=== PATIENT | male | born 1975 | race Caucasian/White ===

== ENCOUNTER 2016-12-09 21:26 | Inpatient (IN) | payer BC, OTHER ==
[~2016-12-09 21:26] MED LIST: ISOVUE-370 76%-LOCM 1 ML ONE
[2016-12-09 21:47] LABS: #Basophils 0.1 thou/uL (0.0-0.2); #Eosinphils 0.3 thou/uL (0.0-0.7); #Lymphocytes 2.9 thou/uL (1.20-3.40); #Monocytes 0.8 thou/uL (0.11-0.59); #Neutrophils 10.3 thou/uL (1.40-6.50); %Basophils 0.4 % (0.0-1.0); %Eosinophils 1.9 % (0.0-10.0); %Lymphocytes 20.3 % (21.0-51.0); %Monocytes 5.7 % (0.0-10.0); Hematocrit 44.1 % (42.0-52.0); Mean Platelet Volume 8.1 fL (7.4-10.4); Red Blood Cell (RBC) Count 4.99 mill/uL (4.70-6.10); White Blood Cell (WBC) Count 14.4 thou/uL (4.8-10.8)
[2016-12-09] MEDS ORDERED: Fentanyl 100 MCG/2 ML VIAL ONE (22:00)
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
[2016-12-09] MEDS ORDERED: Dextrose 5% in Water 1,000 ML IV PRN (22:09)
[2016-12-09] MEDS ORDERED: Dextrose 50% Abboject 50 ML SYRINGE SLOW IVP PRN (22:09)
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
[2016-12-09 22:12] LABS: ALT (SGPT) 35 U/L (8-55); AST (SGOT) 37 U/L (5-34); Alkaline Phosphatase 43 U/L (40-150); Anion Gap 11 mmol/L (10-20); BUN (Urea Nitrogen) 19 mg/dL (8.9-20.6); Bilirubin, Total 0.7 mg/dL (0.2-1.2); Calc. Creatinine Clearance 0 mL/min (70-130); Calcium 9.2 mg/dL (7.8-10.44); Carbon Dioxide 28 mmol/L (22-29); Chloride 105 mmol/L (98-107); Estimated GFR-MDRD 59; Globulin 2.8 g/dL (2.4-3.5); Protein, Total 6.8 g/dL (6.0-8.3)
[2016-12-09 22:13] LABS: Prothrombin Time 13.5 SEC (12.0-14.7)
[2016-12-09] MEDS ORDERED: Adacel (T-DAP) 0.5 ML VIAL ONE (22:18)
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
[2016-12-09] MEDS ORDERED: Morphine Sulfate 2 MG/ML SYRINGE SLOW IVP PRN (22:27)
[2016-12-09] MEDS ORDERED: Ondansetron ODT 4 MG TAB PO PRN (22:29)
[2016-12-09] MEDS ORDERED: Cyclobenzaprine 10 MG TAB PO PRN (22:45)
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
[2016-12-09] MEDS ORDERED: Ketorolac Tromethamine 30 MG/ML VIAL IVP SCH (23:59)
[2016-12-10] MEDS: Sodium Chloride 0.9% 1,000 ML IV SCH ×4 (00:05→20:20)
[2016-12-10] MEDS: traMADol HCl 50 MG TAB PO SCH ×5 (00:06→20:19)
[2016-12-10] MEDS: Ketorolac Tromethamine 30 MG/ML VIAL IVP SCH ×4 (00:07→18:41)
[2016-12-10] MEDS: Acetaminophen 500 MG TAB PO SCH ×5 (00:07→20:18)
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
[2016-12-10 05:17] LABS: #Monocytes 0.9 thou/uL (0.11-0.59); #Neutrophils 11.3 thou/uL (1.40-6.50); %Basophils 0.1 % (0.0-1.0); %Eosinophils 0.2 % (0.0-10.0); %Lymphocytes 7.6 % (21.0-51.0); %Monocytes 6.6 % (0.0-10.0); Hematocrit 37.6 % (42.0-52.0); Mean Platelet Volume 8.5 fL (7.4-10.4); Red Blood Cell (RBC) Count 4.25 mill/uL (4.70-6.10); White Blood Cell (WBC) Count 13.2 thou/uL (4.8-10.8)
[2016-12-10 05:38] LABS: Anion Gap 11 mmol/L (10-20); BUN (Urea Nitrogen) 22 mg/dL (8.9-20.6); Calc. Creatinine Clearance 0 mL/min (70-130); Calcium 8.5 mg/dL (7.8-10.44); Carbon Dioxide 23 mmol/L (22-29); Chloride 109 mmol/L (98-107); Estimated GFR-MDRD 67; Magnesium 1.8 mg/dL (1.6-2.6); Phosphorus 2.5 mg/dL (2.3-4.7)
[2016-12-10 06:11] VITALS: BMI 42.7
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
[2016-12-10] MEDS ORDERED: Fentanyl 100 MCG/2 ML VIAL ONE ×2 (08:24→12:09)
[2016-12-10] MEDS ORDERED: Midazolam HCl 2 mg/2 ml Vial ONE (09:41)
[2016-12-10] MEDS ORDERED: Fentanyl 250 MCG/5 ML VIAL ONE (09:41)
[2016-12-10] MEDS ORDERED: Ketorolac Tromethamine 30 MG/ML VIAL ONE (10:12)
[2016-12-10] MEDS ORDERED: Succinylcholine Chloride 20 MG/ML 10 ml SYRINGE FS ONE (10:12)
[2016-12-10] MEDS ORDERED: Propofol 200 MG/20 ML VIAL ONE ×2 (10:12)
[2016-12-10] MEDS ORDERED: PHENYLEPHRINE-NS 100 MCG/ML 10 ML SYRINGE ONE (10:12)
[2016-12-10] MEDS ORDERED: Glycopyrrolate 0.2 MG/ML 5 ML SYRINGE ONE (10:12)
[2016-12-10] MEDS ORDERED: Ondansetron HCl/PF 4 MG/2 ML Vial ONE (10:12)
[2016-12-10] MEDS ORDERED: Lidocaine 1% PF 5 ML VIAL ONE (10:12)
[2016-12-10] MEDS ORDERED: Dexamethasone 20 MG/5 ML VIAL ONE (10:12)
[2016-12-10] MEDS ORDERED: Ondansetron HCl/PF 4 MG/2 ML Vial IVP PRN (11:48)
[2016-12-10] MEDS ORDERED: Promethazine HCl 25 MG/ML VIAL IM PRN (11:48)
[2016-12-10] MEDS ORDERED: Promethazine HCl 25 MG/ML VIAL SLOW IVP PRN (11:48)
[2016-12-10] MEDS: Famotidine 20 MG TAB PO SCH ×2 (12:53→20:19)
--- NOTE | 2016-12-10 15:10 | RAD ---
TWO VIEWS LEFT FEMUR: Comparison: 12-10-15 History: Femur fracture. FINDINGS/IMPRESSION: Multiple limited intraoperative fluoroscopic views of the left femur were submitted for interpretati on. Patient is status post retrograde intramedullary alessandro fixation of the fracture of the mid portion of the femur. The fracture is better aligned. POS: [facility]
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
[2016-12-11] MEDS: Ketorolac Tromethamine 30 MG/ML VIAL IVP SCH ×4 (00:40→18:33)
[2016-12-11] MEDS: Acetaminophen 500 MG TAB PO SCH ×4 (05:01→22:44)
[2016-12-11] MEDS: traMADol HCl 50 MG TAB PO SCH ×4 (05:01→22:44)
[2016-12-11] MEDS: Famotidine 20 MG TAB PO SCH ×3 (09:07→22:44)
[2016-12-11] MEDS: Sodium Chloride 0.9% 1,000 ML IV SCH ×2 (09:24→18:33)
--- NOTE | 2016-12-11 10:13 | RAD ---
4 VIEWS OF LEFT FEMUR: Date: 12/11/16 HISTORY: Postoperative knee pain, fracture, status post open reduction and internal fixation. FINDINGS: There is an intramedullary alessandro within the femur with two distal interlocking screws and a proximal i nterlocking screw. Cutaneous dominick are seen within the thigh proximally and distally near the knee . There is a comminuted fracture of the proximal/mid shaft left femur. A subtle fracture involving t he distal left femoral shaft as well. Anatomic alignment is seen at the fracture sites. IMPRESSION: Postoperative changes as detailed above. POS: [facility]
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
[2016-12-12] MEDS: Ketorolac Tromethamine 30 MG/ML VIAL IVP SCH ×4 (00:29→18:34)
[2016-12-12] MEDS: Ondansetron HCl/PF 4 MG/2 ML Vial IVP PRN ×2 (01:51→10:27)
[2016-12-12] MEDS: Sodium Chloride 0.9% 1,000 ML IV SCH (04:05)
[2016-12-12] MEDS: traMADol HCl 50 MG TAB PO SCH ×5 (04:33→20:57)
[2016-12-12] MEDS: Acetaminophen 500 MG TAB PO SCH ×4 (04:33→20:56)
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
[2016-12-12] MEDS ORDERED: HYDROcodone/Acetaminophen 7.5/325 mg Tablet PO PRN (08:54)
[2016-12-12] MEDS: Senokot S 8.6-50 MG TAB PO SCH ×2 (09:21→20:56)
[2016-12-12] MEDS: Polyethylene Glycol 3350 17 GM Packet PO SCH (09:22)
[2016-12-12] MEDS: Famotidine 20 MG TAB PO SCH ×2 (09:22→20:56)
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
[2016-12-12] MEDS ORDERED: Magnesium Citrate 300 ML BOT PO SCH (15:30)
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
[2016-12-13] MEDS: Ketorolac Tromethamine 30 MG/ML VIAL IVP SCH ×4 (00:33→17:05)
[2016-12-13] MEDS: traMADol HCl 50 MG TAB PO SCH ×4 (05:20→20:41)
[2016-12-13] MEDS: Acetaminophen 500 MG TAB PO SCH ×4 (05:20→20:40)
[2016-12-13] MEDS: Senokot S 8.6-50 MG TAB PO SCH ×2 (08:47→20:41)
[2016-12-13] MEDS: Polyethylene Glycol 3350 17 GM Packet PO SCH (08:47)
[2016-12-13] MEDS: Famotidine 20 MG TAB PO SCH ×2 (08:48→20:42)
[2016-12-13] MEDS: Enoxaparin Sodium 40 MG/0.4 ML SYRINGE SC SCH (08:48)
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
[2016-12-13] MEDS: Scopolamine 1.5 mg/72 hour Patch TD SCH (12:05)
[2016-12-14] MEDS: Ketorolac Tromethamine 30 MG/ML VIAL IVP SCH ×5 (00:38→22:17)
[2016-12-14] MEDS: traMADol HCl 50 MG TAB PO SCH ×3 (05:07→17:22)
[2016-12-14] MEDS: Acetaminophen 500 MG TAB PO SCH ×2 (05:07→11:02)
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
[2016-12-14] MEDS ORDERED: Ibuprofen 800 MG TAB PO SCH (08:30)
[2016-12-14] MEDS: Famotidine 20 MG TAB PO SCH ×2 (08:50→20:42)
[2016-12-14] MEDS: Senokot S 8.6-50 MG TAB PO SCH ×2 (08:50→20:42)
[2016-12-14] MEDS: Polyethylene Glycol 3350 17 GM Packet PO SCH (08:50)
[2016-12-14] MEDS: Enoxaparin Sodium 40 MG/0.4 ML SYRINGE SC SCH (08:51)
[2016-12-14] MEDS ORDERED: Metoclopramide HCl 10 MG/2 ML VIAL IVP SCH (09:45)
[2016-12-14] MEDS: Ondansetron HCl/PF 4 MG/2 ML Vial IVP PRN (11:02)
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
[2016-12-14] MEDS: D5 1/2 NS w/20 mEq KCL 1,000 ML IV SCH ×2 (12:59→23:58)
[2016-12-14] MEDS: Acetaminophen 1,000 MG in Premix Bag 1 BAG IVPB SCH ×3 (12:59→23:59)
[2016-12-14] MEDS: Meclizine HCl 25 MG TAB PO SCH ×2 (14:28→20:43)
[2016-12-15] MEDS: Ketorolac Tromethamine 30 MG/ML VIAL IVP SCH ×4 (02:57→20:42)
[2016-12-15] MEDS: Meclizine HCl 25 MG TAB PO SCH ×3 (05:43→21:20)
[2016-12-15] MEDS: Acetaminophen 1,000 MG in Premix Bag 1 BAG IVPB SCH ×2 (05:55→12:30)
[2016-12-15 06:32] LABS: Band 16 % (5-11); Hematocrit 34.8 % (42.0-52.0); Mean Platelet Volume 8.7 fL (7.4-10.4); Metamyelocyte 1 % (0-0); Neutrophil 58 % (42-75); White Blood Cell (WBC) Count 6.4 thou/uL (4.8-10.8)
[2016-12-15 06:37] LABS: Anion Gap 12 mmol/L (10-20); BUN (Urea Nitrogen) 33 mg/dL (8.9-20.6); Calc. Creatinine Clearance 205 mL/min (70-130); Calcium 8.5 mg/dL (7.8-10.44); Carbon Dioxide 24 mmol/L (22-29); Chloride 106 mmol/L (98-107); Estimated GFR-MDRD 86; Magnesium 2.4 mg/dL (1.6-2.6); Phosphorus 3.3 mg/dL (2.3-4.7)
[2016-12-15] MEDS: D5 1/2 NS w/20 mEq KCL 1,000 ML IV SCH (08:13)
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
[2016-12-15] MEDS: Polyethylene Glycol 3350 17 GM Packet PO SCH (09:57)
[2016-12-15] MEDS: Senokot S 8.6-50 MG TAB PO SCH ×2 (09:58→20:43)
[2016-12-15] MEDS: Famotidine 20 MG TAB PO SCH ×2 (09:58→20:39)
[2016-12-15] MEDS: Enoxaparin Sodium 40 MG/0.4 ML SYRINGE SC SCH (10:00)
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
[2016-12-15] MEDS ORDERED: traMADol HCl 50 MG TAB PO PRN ×2 (18:36)
[2016-12-15] MEDS: Acetaminophen 500 MG TAB PO SCH (19:32)
[2016-12-16] MEDS: Acetaminophen 500 MG TAB PO SCH ×4 (01:00→19:50)
[2016-12-16] MEDS: Ketorolac Tromethamine 30 MG/ML VIAL IVP SCH (03:22)
[2016-12-16] MEDS: Meclizine HCl 25 MG TAB PO SCH ×3 (06:52→21:30)
[2016-12-16] MEDS: Senokot S 8.6-50 MG TAB PO SCH ×2 (09:24→21:30)
[2016-12-16] MEDS: Polyethylene Glycol 3350 17 GM Packet PO SCH (09:24)
[2016-12-16] MEDS: Enoxaparin Sodium 40 MG/0.4 ML SYRINGE SC SCH (09:30)
[2016-12-16] MEDS: Famotidine 20 MG TAB PO SCH ×2 (09:35→21:29)
[2016-12-16] MEDS: Scopolamine 1.5 mg/72 hour Patch TD SCH (12:46)
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
[2016-12-17] MEDS: Acetaminophen 500 MG TAB PO SCH ×3 (01:25→13:45)
[2016-12-17] MEDS: Meclizine HCl 25 MG TAB PO SCH ×2 (07:37→13:45)
[2016-12-17] MEDS: Famotidine 20 MG TAB PO SCH (09:20)
[2016-12-17] MEDS: Enoxaparin Sodium 40 MG/0.4 ML SYRINGE SC SCH (09:21)
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
[2016-12-17 16:18] VITALS: BP 128/80; TEMP 98
== END 2016-12-17 16:35 | disposition swing bed (61) | DRG 956 ==
LOC: ERS 21:26 → SURG A 23:12
PROVIDERS: ADMIT Specialist; ATTEND Specialist
PROC: 0QH906Z Insertion of Intramedullary Internal Fixation Device into Left Femoral Shaft, Open Approach (ICD-10-PCS; principal; 2016-12-10)
DX: S72.362A Displaced segmental fracture of shaft of left femur, initial encounter for closed fracture (principal); S27.329A Contusion of lung, unspecified, initial encounter; S22.42XA Multiple fractures of ribs, left side, initial encounter for closed fracture; V23.4XXA Motorcycle driver injured in collision with car, pick-up truck or van in traffic accident, initial encounter; Y92.410 Unspecified street and highway as the place of occurrence of the external cause; R22.9 Localized swelling, mass and lump, unspecified; R11.2 Nausea with vomiting, unspecified; M25.572 Pain in left ankle and joints of left foot; M54.12 Radiculopathy, cervical region
CPT/HCPCS: 36415; 70450; 71010; 71260; 72040; 72125; 74177; 76001; 80048; 80053; 80307; 83735; 84100; 85007; 85025; 85027; 85610; 85730; 86850; 86900; 86901; 90471; 90715; 93005; 94640; 94760; 96361; 96374; C1713; C1769; G0390; G8978-GP-CK; G8979-GP-CJ; G8987-GO-CL; G8988-GO-CJ; J0131; J1100; J1650; J1885; J2001; J2250; J2270; J2405; J2704; J3010; J7620; L1832; Q0162

== ENCOUNTER 2016-12-27 15:01 | Outpatient (CLI) | payer BC ==
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
--- NOTE | 2016-12-27 22:04 | MRI ---
MRI OF THE CERVICL SPINE: Date: 12-27-16 History: Cervical radiculopathy, left arm numbness and tingling. Limited movement of the left should er. Technique: Multiplanar, multisequence MR imaging of the cervical spine obtained without contrast. FINDINGS: Craniocervical junction appears intact. Mild degenerative change noted at the atlantoaxial interspac e. There is a mild degree of cervical scoliotic curvature, a degree of which may be on the basis of positioning. The sagittal STIR imaging demonstrates no focal area of osseous marrow edema. No focal area of abnormal prevertebral soft tissue swelling abnormality. Cervicothoracic junction appears int act. C2-3: Intervertebral disc height and signal intensity is within normal limits with no significant ce ntral canal or neural foraminal stenosis. L3-4: There is disc space narrowing and disc desiccation. There is disc bulge with a superimposed le ft paracentral/left foraminal disc protrusion. This causes significant central canal stenosis latera lly on the left at C3-4 and moderate/severe left neural foraminal stenosis. There is no significant right neural foraminal stenosis. C4-5: Intervertebral disc height and signal intensity appears within normal limits with no significa nt central canal or neural foraminal stenosis. C5-6: Disc space narrowing, disc desiccation and mild disc bulge present. Partial effacement of the ventral thecal sac with no significant central canal or neural foraminal stenosis. C6-7: There is mild disc bulge. There is a foraminal tear on the left with an associated left forami nal disc protrusion causing significant left neural foraminal stenosis. No significant central canal or right neural foraminal stenosis. C7-T1: No significant central canal or neural foraminal stenosis. No focal area of signal abnormality identified within the cervical cord. IMPRESSION: Cervical disc disease with associted significant left sided neural foraminal stenosis at C3-4 and C6 -7 as detailed above. POS: CRICKET
== END 2016-12-27 15:02 | disposition home or self-care (01) ==
LOC: TBSIIMAG 15:01
PROVIDERS: ATTEND Family Medicine
DX: M25.512 Pain in left shoulder (principal); M50.80 Other cervical disc disorders, unspecified cervical region
CPT/HCPCS: 72141

== ENCOUNTER 2017-10-11 13:16 | Outpatient (CLI) | payer OTHER ==
--- NOTE | 2017-10-11 15:59 | MRI ---
MRI OF THE LEFT SHOULDER: DATE: 10/11/17. PROVIDED CLINICAL HISTORY: Left shoulder pain. FINDINGS: Comparison is made with the study dated 12/27/16. Full-thickness, full-width retracted tears of the supraspinatus and infraspinatus tendons are redemonstrated. There is now retraction proximal to the glenohumeral joint. There is associated essentially complete atrophy of the infraspinatus muscle and severe muscular volume loss involving supraspinatus muscle. Partial thickness undersurface tearing involving the cranial fibers of the subscapularis may be present. The teres minor appears intact. T he long-head biceps tendon appears intact and is normally located. There is abnormal signal present in the region of the superior labrum. This more convincingly demons trated features suggesting SLAP tear on the prior study, not optimally evaluated in the absence of mi int distention. No focal glenohumeral articular cartilage defect is apparent. The amount of fluid within the glenohumeral joint appears physiologic. There is no significant subac romial subdeltoid bursal fluid. Acromioclavicular joint osteoarthrosis is present. No focal concerning regional marrow or muscular s ignal abnormality. Foci of probable fat necrosis within the subcutaneous fat about the deltoid muscl e. IMPRESSION: 1. Full-thickness, full-width retracted tears of supraspinatus and infraspinatus with prominent musc ular volume loss and fatty infiltration as above. 2. Possible superior labrum anterior to posterior tear. 3. Possible partial thickness undersurface tearing involving the cranial fibers of subscapularis. 4. Acromioclavicular joint osteoarthrosis. POS: TPC
== END 2017-10-11 13:17 | disposition home or self-care (01) ==
LOC: TBSIIMAG 13:16
PROVIDERS: ATTEND Orthopaedic Surgery
DX: M75.122 Complete rotator cuff tear or rupture of left shoulder, not specified as traumatic (principal); M75.102 Unspecified rotator cuff tear or rupture of left shoulder, not specified as traumatic; M19.012 Primary osteoarthritis, left shoulder

== ENCOUNTER 2017-11-22 09:16 | Outpatient (CLI) | payer OTHER | END 2017-11-22 09:17 | disposition home or self-care (01) | LOC: BICULT 09:16 | PROVIDERS: ATTEND Family Medicine | DX: R94.6 Abnormal results of thyroid function studies (principal); E04.2 Nontoxic multinodular goiter | CPT/HCPCS: 76536 ==

== ENCOUNTER 2017-12-19 19:30 | Outpatient (CLI) | payer OTHER | END 2017-12-19 19:31 | disposition home or self-care (01) | LOC: SLEEPLAB 19:30 | PROVIDERS: ATTEND Family Medicine | DX: G47.33 Obstructive sleep apnea (adult) (pediatric) (principal); R53.83 Other fatigue; E66.9 Obesity, unspecified; Z68.42 Body mass index [BMI] 45.0-49.9, adult | CPT/HCPCS: 95811 ==

== ENCOUNTER 2018-06-26 13:01 | Emergency (ER) | payer OTHER ==
[2018-06-26] MEDS ORDERED: Acetaminophen 500 MG TAB ONE (13:53)
[2018-06-26 14:25] LABS: Hemoglobin 14.4 g/dL (14.0-18.0); Mean Corpuscular HGB CONC 32.6 g/dL (32.0-36.0); Mean Corpuscular Hemoglobin 28.1 pg (27.0-31.0); Mean Corpuscular Volume 86.4 fL (78.0-98.0); Mean Platelet Volume 9.2 fL (7.4-10.4); Platelet Count 188 thou/uL (130-400); RBC Distribution Width 12.7 % (11.5-14.5); White Blood Cell (WBC) Count 18.8 thou/uL (4.8-10.8)
[2018-06-26 14:46] LABS: ALT (SGPT) 20 U/L (8-55); AST (SGOT) 18 U/L (5-34); Albumin 4.3 g/dL (3.5-5.0); Alkaline Phosphatase 42 U/L (40-150); Anion Gap 11 mmol/L (10-20); BUN (Urea Nitrogen) 17 mg/dL (8.9-20.6); Bilirubin, Total 0.7 mg/dL (0.2-1.2); Calc. Creatinine Clearance 0 mL/min (70-130); Calcium 9.6 mg/dL (7.8-10.44); Carbon Dioxide 26 mmol/L (22-29); Chloride 103 mmol/L (98-107); Estimated GFR-MDRD 64; Globulin 3.3 g/dL (2.4-3.5); Glucose 121 mg/dL (70-105); Potassium 3.7 mmol/L (3.5-5.1); Protein, Total 7.6 g/dL (6.0-8.3); Sodium 136 mmol/L (136-145)
--- NOTE | 2018-06-26 14:58 | RAD ---
2 VIEW CHEST: Date: 06/26/18 HISTORY: Cough, shortness of breath, chest pain. FINDINGS: Lungs appear clear. Heart and mediastinum unremarkable. Osseous structures unremarkable. IMPRESSION: No acute abnormality. POS: TPC
[2018-06-26 15:04] LABS: Band 10 % (5-11); Lymphocytes 13 % (21-51); MDiff Complete? YES; Monocytes 2 % (0-10); Neutrophil 75 % (42-75); Platelet Morphology Comment Appears Adequate
--- NOTE | 2018-06-26 15:25 | ULT ---
LEFT LOWER EXTREMITY VENOUS DOPPLER: Date: 06/26/18 PROVIDED CLINICAL HISTORY: Left leg pain. FINDINGS: Wills scale and color Doppler sonography with spectral analysis performed of the left common femoral, femoral, popliteal, posterior tibial, greater saphenous, and profunda femoral veins, demonstrating a normal sonographic appearance to each. IMPRESSION: No sonographic evidence for left lower extremity deep venous thrombosis. POS: OFF
[2018-06-26] MEDS ORDERED: Sodium Chloride 0.9% 100 ML ONE (16:01)
[2018-06-26] MEDS ORDERED: cefTRIAXone\\ROCEPHIN 2 GM VIAL ONE (16:01)
[2018-06-26] MEDS ORDERED: Clindamycin/D5W 900 mg/50 ml Premix Bag ONE (16:50)
[2018-06-26 18:17] LABS: Lactic Acid 1.5 mmol/L (0.5-2.2)
== END 2018-06-26 18:05 | disposition home or self-care (01) ==
LOC: ERS 13:01
DX: L03.116 Cellulitis of left lower limb (principal); D72.829 Elevated white blood cell count, unspecified; Z87.891 Personal history of nicotine dependence
CPT/HCPCS: 36415; 71046; 80053; 83605; 85025; 87040; 87086; 93005; 96361; 96365; 96367; J0696; J3490

== ENCOUNTER 2020-07-14 22:45 | Observation (INO) | payer MEDICARE, OTHER ==
[2020-07-15 00:33] LABS: Hemoglobin 15.7 g/dL (14.0-18.0); Mean Corpuscular HGB CONC 33.1 g/dL (32.0-36.0); Mean Corpuscular Hemoglobin 29.4 pg (27.0-31.0); Mean Corpuscular Volume 88.6 fL (78.0-98.0); RBC Distribution Width 11.3 % (11.5-14.5); Red Blood Cell (RBC) Count 5.34 mill/uL (4.70-6.10)
[2020-07-15 00:45] LABS: ALT (SGPT) 23 U/L (8-55); AST (SGOT) 19 U/L (5-34); Albumin 4.3 g/dL (3.5-5.0); Alkaline Phosphatase 43 U/L (40-110); Anion Gap 14 mmol/L (10-20); BUN (Urea Nitrogen) 18 mg/dL (8.9-20.6); Bilirubin, Total 0.5 mg/dL (0.2-1.2); Calc. Creatinine Clearance 0 mL/min (70-130); Calcium 9.9 mg/dL (7.8-10.44); Carbon Dioxide 26 mmol/L (22-29); Chloride 104 mmol/L (98-107); Globulin 3.1 g/dL (2.4-3.5); Glucose 115 mg/dL (70-105); Potassium 3.8 mmol/L (3.5-5.1); Protein, Total 7.4 g/dL (6.0-8.3); Sodium 140 mmol/L (136-145)
[2020-07-15 00:52] LABS: Band 26 % (5-11); Lymphocytes 3 % (21-51); MDiff Complete? YES; Mean Platelet Volume 9.5 fL (7.4-10.4); Metamyelocyte 1 % (0-0); Monocytes 3 % (0-10); Neutrophil 67 % (42-75); Platelet Count 175 thou/uL (130-400); White Blood Cell (WBC) Count 20.5 thou/uL (4.8-10.8)
[2020-07-15] MEDS ORDERED: Clindamycin/D5W 600 MG in Premix Bag 1 BAG IVPB SCH (01:15)
[2020-07-15 03:38] VITALS: BMI 43.9
[2020-07-15] MEDS ORDERED: Zolpidem Tartrate 5 MG TAB PO PRN (04:10)
[2020-07-15] MEDS ORDERED: Acetaminophen 325 MG TAB PO PRN (04:10)
[2020-07-15] MEDS ORDERED: HYDROcodone/Acetaminophen 10/325 mg Tablet PO PRN (04:10)
[2020-07-15] MEDS ORDERED: Ondansetron PF 4 MG/2 ML Vial IVP PRN (04:10)
[2020-07-15] MEDS ORDERED: Bisacodyl 5 MG TAB PO PRN (04:10)
[2020-07-15] MEDS: Nicotine 21 MG PATCH TD SCH (08:12)
[2020-07-15] MEDS ORDERED: Clindamycin/D5W 600 mg/50 ml Premix Bag ONE (08:13)
[2020-07-15] MEDS: Clindamycin/D5W 600 MG in Premix Bag 1 BAG IVPB SCH ×3 (08:13→23:38)
[2020-07-15] MEDS ORDERED: Acetaminophen 500 MG TAB ONE (08:15)
[2020-07-15] MEDS ORDERED: Famotidine 20 MG TAB ONE (09:05)
[2020-07-15] MEDS ORDERED: Enoxaparin Sodium 40 MG/0.4 ML SYRINGE ONE (09:05)
[2020-07-15] MEDS: Famotidine 20 MG TAB PO SCH ×2 (09:11→23:38)
[2020-07-15] MEDS: Enoxaparin Sodium 40 MG/0.4 ML SYRINGE SC SCH (09:11)
[2020-07-15] MEDS ORDERED: Acetaminophen 500 MG TAB PO PRN (11:13)
[2020-07-16] MEDS: Clindamycin/D5W 600 MG in Premix Bag 1 BAG IVPB SCH ×3 (03:05→13:38)
[2020-07-16] MEDS: Nicotine 21 MG PATCH TD SCH (05:00)
[2020-07-16 07:29] LABS: #Basophils 0.1 thou/uL (0.0-0.2); #Eosinphils 0.2 thou/uL (0.0-0.7); #Lymphocytes 1.9 thou/uL (1.20-3.40); #Monocytes 1.1 thou/uL (0.11-0.59); #Neutrophils 10.7 thou/uL (1.40-6.50); %Basophils 0.5 % (0.0-1.0); %Eosinophils 1.6 % (0.0-10.0); %Lymphocytes 13.4 % (21.0-51.0); %Monocytes 7.8 % (0.0-10.0); %Neutrophils 76.7 % (42.0-75.0); Hemoglobin 13.6 g/dL (14.0-18.0); Mean Corpuscular HGB CONC 31.9 g/dL (32.0-36.0); Mean Corpuscular Hemoglobin 28.7 pg (27.0-31.0); Mean Corpuscular Volume 89.7 fL (78.0-98.0); Mean Platelet Volume 9.4 fL (7.4-10.4); Platelet Count 150 thou/uL (130-400); RBC Distribution Width 11.4 % (11.5-14.5); Red Blood Cell (RBC) Count 4.75 mill/uL (4.70-6.10)
[2020-07-16 07:57] LABS: ALT (SGPT) 14 U/L (8-55); AST (SGOT) 11 U/L (5-34); Albumin 3.5 g/dL (3.5-5.0); Alkaline Phosphatase 35 U/L (40-110); Anion Gap 11 mmol/L (10-20); Bilirubin, Total 0.4 mg/dL (0.2-1.2); Calc. Creatinine Clearance 160 mL/min (70-130); Calcium 8.5 mg/dL (7.8-10.44); Carbon Dioxide 23 mmol/L (22-29); Chloride 108 mmol/L (98-107); Globulin 2.8 g/dL (2.4-3.5); Glucose 101 mg/dL (70-105); Potassium 3.7 mmol/L (3.5-5.1); Protein, Total 6.3 g/dL (6.0-8.3); Sodium 138 mmol/L (136-145)
[2020-07-16 07:58] LABS: BUN (Urea Nitrogen) 18 mg/dL (8.9-20.6)
[2020-07-16] MEDS: Famotidine 20 MG TAB PO SCH (09:13)
[2020-07-16] MEDS: Enoxaparin Sodium 40 MG/0.4 ML SYRINGE SC SCH (09:14)
[2020-07-16 11:26] VITALS: BP 128/84; TEMP 97.6
[2020-07-16 15:31] LABS: Anion Gap 9 mmol/L (10-20); BUN (Urea Nitrogen) 17 mg/dL (8.9-20.6); Calc. Creatinine Clearance 168 mL/min (70-130); Calcium 8.6 mg/dL (7.8-10.44); Carbon Dioxide 24 mmol/L (22-29); Chloride 109 mmol/L (98-107); Glucose 92 mg/dL (70-105); Sodium 138 mmol/L (136-145)
== END 2020-07-16 15:17 | disposition home or self-care (01) ==
LOC: ERS 22:45 → ERHOLD 07-15 02:13 → T4-A 07-15 14:54
PROVIDERS: ADMIT Internal Medicine; ATTEND Hospitalist
DX: L03.116 Cellulitis of left lower limb (principal); L02.416 Cutaneous abscess of left lower limb; G47.33 Obstructive sleep apnea (adult) (pediatric); F17.210 Nicotine dependence, cigarettes, uncomplicated; I50.32 Chronic diastolic (congestive) heart failure; E66.9 Obesity, unspecified; Z68.39 Body mass index [BMI] 39.0-39.9, adult; Z79.899 Other long term (current) drug therapy
CPT/HCPCS: 71045; 80048; 80053; 85025; 86140; 87040; 93306; 93970; 96365; 96372 ×2; 96376 ×2; 99284; G0378 ×3; 36415; 84443; 96374; J1650; J3490